=== PATIENT | male | born 1970 | race Caucasian/White ===

== ENCOUNTER 2017-12-20 16:24 | Emergency (ER) | payer OTHER ==
[~2017-12-20] VITALS: Ht 172.7 cm; Wt 113.4 kg
[2017-12-20 16:26] VITALS: Ht 172.7 cm; Wt 113.4 kg
[2017-12-20 17:06] LABS: BASOPHIL % 0.4 % (0-2); PLATELET COUNT 302 x10^3mcL (130-400); RED CELL DISTRIBUTION WIDTH 13.1 % (11.5-14.5)
[2017-12-20 17:13] LABS: AMPHETAMINE QUAL UR NONE DETECTED (NEG <=1000)
[2017-12-20 17:20] LABS: ALKALINE PHOSPHATASE 119 U/L (46-116); ALT/SGPT 68 U/L (16-63); AST/SGOT 52 U/L (15-37); BILIRUBIN TOTAL 0.2 mg/dL (0.20-1.00); CALCIUM 11.3 mg/dL (8.5-10.1); CARBON DIOXIDE 13.8 mmol/L (21-32); CHLORIDE SERUM 107 mmol/L (98-107); CHOLESTEROL 137 mg/dL (<200); CREATININE SERUM 1.5 mg/dL (0.7-1.3); GFR1 53 mL/min; GLUCOSE SERUM 194 mg/dL (74-106); SODIUM SERUM 142 mmol/L (136-145)
[2017-12-20 17:21] LABS: ALBUMIN 2.7 g/dL (3.4-5.0); POTASSIUM SERUM 2.8 mmol/L (3.5-5.1); TOTAL PROTEIN, SERUM 5.4 g/dL (6.4-8.2)
[2017-12-20 18:21] LABS: microscopic required? YES; urine erythrocyte TRACE (NEGATIVE)
[2017-12-20 21:49] VITALS: BP 129/83
== END 2017-12-20 21:49 | disposition short-term general hospital (02) ==
LOC: EDBD 16:24 → ED 16:24
PROVIDERS: Specialist
DX: T78.2XXA Anaphylactic shock, unspecified, initial encounter (principal); J96.00 Acute respiratory failure, unspecified whether with hypoxia or hypercapnia; D72.829 Elevated white blood cell count, unspecified; E87.6 Hypokalemia; E78.00 Pure hypercholesterolemia, unspecified
CPT/HCPCS: 36600; 83880; G0480; J0153; J0696; J1200; J2060; J2405; J2930; J3475; J3480; J3490; J7030; J7613; J7644; Q0092